=== PATIENT | male | born 1990 | race Caucasian/White ===

== ENCOUNTER 2018-12-11 15:38 | Emergency (ER) | payer OTHER ==
[~2018-12-11] VITALS: Ht 185.4 cm; Wt 107.5 kg
[~2018-12-11 15:38] MED LIST: ACETAMINOPHEN-1 EAC1 PO; CARAFATE 1 GM TA1 G1 PO; IBUPROFEN 800800 M1 PO; LIDOCAINE VISC100 M1 SWISH&SPIT; METHADONE HCL 110 M1 PO; NEURONTIN600 MG PO; OMEPRAZOLE40 MG PO; PENICILLIN V P500 MG PO; PENICILLIN VK500 M1 PO; PEPCID20 MG PO; PHENERGAN 25 MG25 MG PO; PRISTIQ50 M1; ZOFRAN4 MG PO
[2018-12-11] MEDS ORDERED: TUMS200 MG PO (16:04)
[2018-12-11] MEDS ORDERED: ACETAMINOPHEN-1 EAC1 PO (16:42)
[2018-12-11] MEDS ORDERED: IBUPROFEN 600600 M1 PO (16:42)
[2018-12-11] MEDS ORDERED: KEFLEX500 M1 PO (16:42)
[2018-12-11 17:00] VITALS: BP 141/49
== END 2018-12-11 17:14 | disposition home or self-care (01) ==
LOC: M.ERS 15:38
DX: M25.572 Pain in left ankle and joints of left foot (principal); F17.200 Nicotine dependence, unspecified, uncomplicated

== ENCOUNTER 2020-12-31 22:47 | Emergency (ER) | payer OTHER ==
[~2020-12-31] VITALS: Ht 185.4 cm; Wt 99.8 kg
[~2020-12-31 22:47] MED LIST changes: +IBUPROFEN 600600 M1 PO; +KEFLEX500 M1 PO; +TUMS200 MG PO
[2020-12-31] MEDS ORDERED: SUBOXONE 8 MG-1 EAC3 SUBLING (22:56)
[2020-12-31 23:27] LABS: ABSOLUTE EOSINOPHILS 0.1 thou/uL (0.0-0.7); ABSOLUTE LYMPHOCYTES 2.3 thou/uL (0.8-5.3); ABSOLUTE MONOCYTES 0.8 thou/uL (0.0-1.2); ABSOLUTE NEUTROPHILS 4.4 thou/uL (1.6-8.1); BASOPHILS 0.4 %; HEMATOCRIT 41.6 % (42.0-52.0); HEMOGLOBIN 14.7 gm/dL (14.0-18.0); LYMPHOCYTES 30.1 %; MCH 31.9 pg (26.0-34.0); MCHC 35.2 g/dL (28.0-37.0); MCV 90.6 fL (80.0-100.0); MONOCYTES 10.2 %; MPV 8.3 fl. (7.2-11.1); NUCLEATED RBCS 0 /100WBC; PLATELET COUNT* 204 thou/uL (150-400); POLYS 58.3 %; RBC 4.59 mil/uL (4.50-6.00); RDW-CV 13.2 % (10.5-14.5); WBC 7.5 thou/uL (4.0-11.0)
[2020-12-31 23:30] LABS: CALCIUM 9.2 mg/dL (8.5-10.1); CREATININE 0.7 mg/dL (0.6-1.3); POTASSIUM 4.2 mmol/L (3.5-5.1)
[2020-12-31 23:35] LABS: ALBUMIN 4.3 g/dL (3.4-5.0); TOTAL BILIRUBIN 0.3 mg/dL (<0.1-1.0); TOTAL PROTEIN 7.7 g/dL (6.4-8.2)
[2020-12-31 23:48] LABS: URINE BILIRUBIN NEGATIVE (Negative); URINE BLOOD NEGATIVE (Negative); URINE CLARITY CLEAR; URINE COLOR YELLOW; URINE GLUCOSE-RANDOM NEGATIVE (Negative); URINE KETONES NEGATIVE (Negative); URINE LEUKOCYTES-REFLEX NEGATIVE (Negative); URINE NITRITE-REFLEX NEGATIVE (Negative); URINE PROTEIN TRACE (Negative); URINE UROBILINOGEN 0.2 E.U./dl (0.2-1.0)
[2021-01-01] MEDS ORDERED: NAPROSYN500 MG PO (01:39)
[2021-01-01] MEDS ORDERED: LEVOFLOXACIN750 MG PO (01:39)
[2021-01-01 02:04] VITALS: BP 132/82
== END 2021-01-01 02:04 | disposition home or self-care (01) ==
LOC: M.ERS 22:47
PROVIDERS: Personal Emergency Response Attendant
DX: K40.90 Unilateral inguinal hernia, without obstruction or gangrene, not specified as recurrent (principal); F17.210 Nicotine dependence, cigarettes, uncomplicated